=== PATIENT | male | born 1970 | race Caucasian/White ===

== ENCOUNTER 2023-01-15 16:44 | Emergency (ER) | payer OTHER ==
[~2023-01-15] VITALS: Ht 185.4 cm; Wt 100.0 kg
[2023-01-15 17:06] VITALS: BP 145/106; PULSE 88; RESP 8; TEMP 98.1; O2SAT 95
[2023-01-15] MEDS ORDERED: methylPREDNISolone sod succ 125mg/2ml vial IM ONE (18:25)
[2023-01-15] MEDS ORDERED: diphenhydrAMINE 50 mg/ml inj IM ONE (18:25)
[2023-01-15] MEDS ORDERED: CEFD300C3 PO (18:28)
== END 2023-01-15 18:52 | disposition home or self-care (01) ==
LOC: ER 16:46
DX: T63.441A Toxic effect of venom of bees, accidental (unintentional), initial encounter (principal); M79.89 Other specified soft tissue disorders; J32.8 Other chronic sinusitis; Y92.89 Other specified places as the place of occurrence of the external cause
CPT/HCPCS: 96372; 99284; J1200; J2930